=== PATIENT | male | born 2000 | race African-American/Black ===

== ENCOUNTER 2020-04-25 10:39 | Emergency (ER) | payer OTHER ==
--- NOTE | 2020-04-25 11:00 | EDPHYS ---
Physician Documentation [facility] Name: Oz Cunningham Age: 19 yrs Sex: Male : 2000 Arrival Date: 04/25/2020 Time: 10:39 Bed 4 Private MD: ED Physician Moncho Oliver HPI: 04/25 10:54 This 19 yrs old Black Male presents to ER via Ambulatory with complaints of Shoulder day Dislocation. 10:54 The patient or guardian complains of decreased range of motion, deformity, pain. left day shoulder. Context: [place] resulted [place]. Onset: The symptoms/episode began/occurred just prior to arrival. Modifying factors: the symptoms are alleviated by remaining still, The symptoms are aggravated by movement. Associated signs and symptoms: The patient has no apparent associated signs or symptoms. Severity of symptoms: At their worst the symptoms were moderate, in the emergency department the symptoms are unchanged. Treatment prior to arrival includes: no previous treatment. The patient has experienced similar episodes in the past, several times. Historical: - Allergies: 10:56 No Known Allergies; iw - Immunization history:: Adult Immunizations up to date. - Family history:: not pertinent. - Social history:: Smoking status: Patient reports the use of cigarette tobacco products, denies chronic smoking, but will smoke occasionally. ROS: 10:54 Constitutional: Negative for fever, chills, and weight loss, Eyes: Negative for injury, day pain, redness, and discharge, ENT: Negative for injury, pain, and discharge, Neck: Negative for injury, pain, and swelling, Cardiovascular: Negative for chest pain, palpitations, and edema, Respiratory: Negative for shortness of breath, cough, wheezing, and pleuritic chest pain, Abdomen/GI: Negative for abdominal pain, nausea, vomiting, diarrhea, and constipation, Back: Negative for injury and pain, : Negative for injury, bleeding, discharge, and swelling, Skin: Negative for injury, rash, and discoloration, Neuro: Negative for headache, weakness, numbness, tingling, and seizure, Psych: Negative for depression, anxiety, suicide ideation, homicidal ideation, and hallucinations, Allergy/Immunology: Negative for hives, rash, and allergies, Endocrine: Negative for neck swelling, polydipsia, polyuria, polyphagia, and marked weight changes. 10:54 MS/extremity: Positive for pain, tenderness, of the anterior aspect of right shoulder and posterior aspect of right shoulder. Exam: 10:54 Constitutional: This is a well developed, well nourished patient who is awake, alert, day and in no acute distress. Head/Face: Normocephalic, atraumatic. Eyes: Pupils equal round and reactive to light, extra-ocular motions intact. Lids and lashes normal. Conjunctiva and sclera are non-icteric and not injected. Cornea within normal limits. Periorbital areas with no swelling, redness, or edema. ENT: Nares patent. No nasal discharge, no septal abnormalities noted. Tympanic membranes are normal and external auditory canals are clear. Oropharynx with no redness, swelling, or masses, exudates, or evidence of obstruction, uvula midline. Mucous membranes moist. Neck: Trachea midline, no thyromegaly or masses palpated, and no cervical lymphadenopathy. Supple, full range of motion without nuchal rigidity, or vertebral point tenderness. No Meningismus. Chest/axilla: Normal chest wall appearance and motion. Nontender with no deformity. No lesions are appreciated. Cardiovascular: Regular rate and rhythm with a normal S1 and S2. No gallops, murmurs, or rubs. Normal PMI, no JVD. No pulse deficits. Respiratory: Lungs have equal breath sounds bilaterally, clear to auscultation and percussion. No rales, rhonchi or wheezes noted. No increased work of breathing, no retractions or nasal flaring. Abdomen/GI: Soft, non-tender, with normal bowel sounds. No distension or tympany. No guarding or rebound. No evidence of tenderness throughout. Back: No spinal tenderness. No costovertebral tenderness. Full range of motion. Male : Normal genitalia with no discharge or lesions. Skin: Warm, dry with normal turgor. Normal color with no rashes, no lesions, and no evidence of cellulitis. Neuro: Awake and alert, GCS 15, oriented to person, place, time, and situation. Cranial nerves II-XII grossly intact. Motor strength 5/5 in all extremities. Sensory grossly intact. Cerebellar exam normal. Normal gait. Psych: Awake, alert, with orientation to person, place and time. Behavior, mood, and affect are within normal limits. 10:54 Musculoskeletal/extremity: ROM: limited active range of motion due to pain, limited passive range of motion due to pain, Circulation is intact in all extremities. Sensation intact. Compartment Syndrome exam of affected extremity: is normal. Joints: the left shoulder displays deformity, dislocation. Vital Signs: 11:04 BP 125 / 88; Pulse 66; Resp 16; Pulse Ox 100% on R/A; ca1 11:06 Temp 97.5(TE); Weight 56.7 kg (R); Height 6 ft. 3 in. (190.50 cm) (R); ca1 11:06 Body Mass Index 15.62 (56.70 kg, 190.50 cm) ca1 Procedures: 11:01 Reduction: of the left shoulder, using traction, manipulation, Immobilized with [facility] shoulder immobilizer. Patient tolerated well. Post reduction film - reveals normal alignment. Joint Treatment:. MDM: 10:42 Patient medically screened. [facility] 10:58 Differential diagnosis: Anterior dislocation with fracture, Posterior dislocation with day fracture, humeral head fracture. Data reviewed: vital signs, nurses notes, radiologic studies, plain films. Data interpreted: muskrat trapper: rate is 70 beats/min, rhythm is regular, Pulse oximetry: on room air is 100 %. Test interpretation: by ED physician or midlevel provider: plain radiologic studies. Counseling: I had a detailed discussion with the patient and/or guardian regarding: the historical points, exam findings, and any diagnostic results supporting the discharge/admit diagnosis, radiology results. ED course: prone, traction and scapula manipulation. 11:02 ED course: rest, no sports, swimming, knows importance of follow up. [facility] 04/25 10:53 Order name: Shoulder Left (2 View) XRAY [facility] 04/25 10:53 Order name: Shoulder Immobilizer; Complete Time: 11:09 [facility] 04/25 10:53 Order name: Ice pack; Complete Time: 11:02 [facility] Administered Medications: 10:55 Drug: Motrin 600 mg Route: PO; [facility] 11:18 Follow up: Response: No adverse reaction; Pain is decreased; RASS: Alert and Calm (0) ca1 11:02 Drug: [place] 10 mg-325 mg 1 tabs {Note: rass 0.} Route: PO; ca1 11:19 Follow up: Response: No adverse reaction; Pain is decreased; RASS: Alert and Calm (0) ca1 Disposition: 04/25/20 11:00 Discharged to Home. Impression: Recurrent dislocation, left shoulder - reduced. - Condition is Stable. - Discharge Instructions: Shoulder Dislocation, Shoulder Dislocation, [id number]-[id number]. - Prescriptions for Ibuprofen 600 mg Oral Tablet - take 1 tablet by ORAL route every 6 hours As needed take with food; 20 tablet. Tylenol- Codeine #3 300-30 mg Oral Tablet - take 2 tablets by ORAL route every 6 hours As needed; 20 tablet. - Medication Reconciliation Form, Thank You Letter, Antibiotic Education, Prescription Opioid Use form. - Follow up: Private Physician; When: 2 - 3 days; Reason: Recheck today's complaints, Continuance of care, Re-evaluation by your physician. - Problem is new. - Symptoms have improved. Signatures: Dispatcher [employer] EDMoncho Stovall MD MD cha Williams, Irene, RN RN iw Libby Marks RN RN ca1 Corrections: (The following items were deleted from the chart) 11:18 11:00 04/25/2020 11:00 Discharged to Home. Impression: Recurrent dislocation, left ca1 shoulder - reduced. Condition is Stable. Forms are Medication Reconciliation Form, Thank You Letter, Antibiotic Education, Prescription Opioid Use. Follow up: Private Physician; When: 2 - 3 days; Reason: Recheck today's complaints, Continuance of care, Re-evaluation by your physician. Problem is new. Symptoms have improved. day
--- NOTE | 2020-04-25 11:00 | ER ---
Nurse's Notes [facility] Name: Oz Cunningham Age: 19 yrs Sex: Male : 2000 Arrival Date: 04/25/2020 Time: 10:39 Bed 4 Private MD: Diagnosis: Recurrent dislocation, left shoulder-reduced Presentation: 04/25 10:53 Chief complaint: Patient states: left shoulder dislocation while swimming at beach, hx iw of previous dislocation. Coronavirus screen: At this time, the client does not indicate any symptoms associated with coronavirus-19. Ebola Screen: Patient negative for fever greater than or equal to 101.5 degrees Fahrenheit, and additional compatible Ebola Virus Disease symptoms Patient denies exposure to infectious person. Patient denies travel to an Ebola-affected area in the 21 days before illness onset. No symptoms or risks identified at this time. Initial Sepsis Screen: Does the patient meet any 2 criteria? No. Patient's initial sepsis screen is negative. Does the patient have a suspected source of infection? No. Patient's initial sepsis screen is negative. Risk Assessment: Do you want to hurt yourself or someone else? Patient reports no desire to harm self or others. Onset of symptoms was April 25, 2020. 10:53 Method Of Arrival: Ambulatory iw 10:53 Acuity: CAITLIN 3 iw Historical: - Allergies: 10:56 No Known Allergies; iw - Immunization history:: Adult Immunizations up to date. - Family history:: not pertinent. - Social history:: Smoking status: Patient reports the use of cigarette tobacco products, denies chronic smoking, but will smoke occasionally. Screenin:03 Abuse screen: Denies threats or abuse. Denies injuries from another. Nutritional ca1 screening: No deficits noted. Tuberculosis screening: No symptoms or risk factors identified. Fall Risk None identified. Assessment: 10:45 General: Appears uncomfortable, Behavior is cooperative. Pain: Complains of pain in iw anterior aspect of left shoulder and posterior aspect of left shoulder. Neuro: Level of Consciousness is awake, alert, obeys commands, Oriented to person, place, time, situation. Derm: Skin. 11:17 Reassessment: Patient appears in no apparent distress at this time. Patient is alert, ca1 oriented x 3, equal unlabored respirations, skin warm/dry/pink. Vital Signs: 11:04 BP 125 / 88; Pulse 66; Resp 16; Pulse Ox 100% on R/A; ca1 11:06 Temp 97.5(TE); Weight 56.7 kg (R); Height 6 ft. 3 in. (190.50 cm) (R); ca1 11:06 Body Mass Index 15.62 (56.70 kg, 190.50 cm) ca1 ED Course: 10:39 Patient arrived in ED. ds1 10:42 Moncho Oliver MD is Attending Physician. [facility] 10:50 Assist provider with reduction of left shoulder using manipulation, Performed by Moncho Oliver MD Patient tolerated well. 10:54 Libby Marks, RN is Primary Nurse. ca1 10:54 Triage completed. iw 11:03 Patient did not have IV access during this emergency room visit. ca1 11:03 Patient has correct armband on for positive identification. Bed in low position. Call ca1 light in reach. Side rails up X 1. Pulse ox on. NIBP on. 11:04 Shoulder Left (2 View) XRAY In Process Unspecified. EDMS 11:05 Arm band placed on right wrist. Affected limb iced. ca1 11:09 Shoulder immobilizer applied on left shoulder. 5 Administered Medications: 10:55 Drug: Motrin 600 mg Route: PO; ca1 11:18 Follow up: Response: No adverse reaction; Pain is decreased; RASS: Alert and Calm (0) ca1 11:02 Drug: [place] 10 mg-325 mg 1 tabs {Note: rass 0.} Route: PO; ca1 11:19 Follow up: Response: No adverse reaction; Pain is decreased; RASS: Alert and Calm (0) [facility] Outcome: 11:00 Discharge ordered by . [facility] 11:17 Discharged to home ambulatory. ca1 11:17 Condition: stable 11:17 Discharge instructions given to patient, Instructed on discharge instructions, follow up and referral plans. no drinking with medication, no driving heavy equipment, medication usage, Demonstrated understanding of instructions, follow-up care, medications, Prescriptions given X 2. 11:18 Patient left the ED. ca1 Signatures: Dispatcher [employer] Moncho Centeno MD MD cha Sanford, Demi ds1 Kimberlyn Fair RN RN iw Martinez, Maria 5 Libby Mraks RN RN [facility]
[2020-04-25] MEDS ORDERED: IBUPROFEN 200 MG TAB PO ONE (11:09)
[2020-04-25] MEDS ORDERED: HYDROCODONE/APAP 10/325 TAB ONE (11:09)
[2020-04-25] MEDS ORDERED: IBUPROFEN 400 MG TAB ONE (11:09)
--- NOTE | 2020-04-25 11:19 | RAD REPORT ---
EXAM DESCRIPTION: RAD - Shoulder Left 2 View - 04/25/2020 11:04 am CLINICAL HISTORY: PAIN COMPARISON: No comparisons FINDINGS: No evidence of fracture or dislocation. Mild soft tissue swelling about the shoulder.
[2020-04-26 11:26] VITALS: BP 125/88; O2SAT 100
[2020-04-26 11:27] VITALS: TEMP 97.5
== END 2020-04-25 11:18 | disposition home or self-care (01) ==
LOC: ER 10:39
PROC: 0RSKXZZ Reposition Left Shoulder Joint, External Approach (ICD-10-PCS; principal; 2020-04-25)
DX: M24.412 Recurrent dislocation, left shoulder (principal); Y93.11 Activity, swimming
CPT/HCPCS: 99284